=== PATIENT | female | born 1970 | race Caucasian/White ===

== ENCOUNTER 2025-02-07 07:51 | Observation (INO) | payer OTHER ==
[~2025-02-07] VITALS: Ht 160 cm; Wt 72.6 kg
[~2025-02-07 07:51] MED LIST: ADVA45AE INH; K2 P1TAB PO; MAGN200T PO; SYNT25TA PO; THERTAB52 PO; VENTAER INH
[2025-02-07] MEDS ORDERED: ROCURONIUM BROMIDE 50MG/5ML VIAL As Ordered ONE (09:14)
[2025-02-07] MEDS ORDERED: LIDOCAINE 2% 100 MG/5 ML SDV (FOR ANES.) As Ordered ONE (09:14)
[2025-02-07] MEDS ORDERED: dexAMETHasone 4 MG/ML 1 ML VIAL As Ordered ONE (09:14)
[2025-02-07] MEDS ORDERED: dexmedeTOMIDine (4 MCG/ML) 200 MCG/50 ML BTL As Ordered ONE (09:14)
[2025-02-07] MEDS ORDERED: ONDANSETRON 4MG/2ML VIAL As Ordered ONE (09:14)
[2025-02-07] MEDS ORDERED: MIDAZOLAM INJ 2 MG/2 ML VIAL As Ordered ONE (09:15)
[2025-02-07] MEDS: GENTAMICIN SULF 80 MG/2 ML VIAL As Ordered ONE (10:21)
[2025-02-07] MEDS ORDERED: LACRILUBE (AKWA TEARS) OPHTH OINT 3.5 GM As Ordered ONE (11:14)
[2025-02-07] MEDS: ceFAZolin SOD 2 GM IV ONCE IV ONE (11:15)
[2025-02-07] MEDS: HEPARIN SOD 5000 UNITS/ML 1 ML VIAL/SYRINGE SQ ONE (11:17)
[2025-02-07] MEDS ORDERED: ACETAMINOPHEN 1000MG/100ML IV BAG As Ordered ONE (11:58)
[2025-02-07] MEDS ORDERED: SUGAMMADEX SODIUM 200 MG/2 ML VIAL As Ordered ONE (11:58)
[2025-02-07] MEDS ORDERED: HYDROmorphone HCL 2 MG/ML 1 ML VIAL As Ordered ONE (11:58)
[2025-02-07] MEDS ORDERED: HYDROMORPHONE HCL 0.5 MG/0.5 ML SYRINGE IV PRN (14:30)
[2025-02-07] MEDS ORDERED: ONDANSETRON 4MG/2ML VIAL IV PRN ×2 (14:30→18:00)
[2025-02-07 17:03] VITALS: BP 128/69; TEMP 98.5; O2SAT 95
[2025-02-07 17:34] VITALS: BP 121/74; TEMP 98.1; O2SAT 96
[2025-02-07] MEDS: LR 1,000 ML IV SCH (17:42)
[2025-02-07] MEDS ORDERED: ACETAMINOPHEN 325 MG TAB PO PRN (18:00)
[2025-02-07 18:01] VITALS: BP 125/64; TEMP 98.1; O2SAT 96
[2025-02-07] MEDS: ceFAZolin SODIUM 2 GM in DEXTROSE 5% (D5W) ADV/MINI-BAG 50 ML IV SCH (18:05)
[2025-02-07] MEDS: traMADol 50 MG TAB PO PRN (20:14)
[2025-02-07 20:34] VITALS: BP 114/62; TEMP 98.1; O2SAT 95
[2025-02-07 21:39] VITALS: BP 116/59; TEMP 98.7; O2SAT 93
[2025-02-07] MEDS: PERCOCET 5MG/325MG TAB PO PRN (23:26)
[2025-02-08 00:38] VITALS: BP 105/57; TEMP 98.3; O2SAT 92
[2025-02-08 06:29] VITALS: BP 100/56; TEMP 98.1; O2SAT 96
[2025-02-08] MEDS ORDERED: FLUT15.820 NARES (08:41)
[2025-02-08] MEDS ORDERED: ALPR0.25 PO (08:41)
[2025-02-08] MEDS ORDERED: HOME MED LIST COMPLETE! XX SCH (08:45)
[2025-02-08] MEDS ORDERED: PERCOCET PO (09:06)
[2025-02-08 10:32] VITALS: BP 120/64; TEMP 98.8; O2SAT 95
== END 2025-02-08 11:12 | disposition home or self-care (01) ==
LOC: M SDC 07:51 → M RR INP 07:52 → M MS5PR 16:50
PROVIDERS: ADMIT Plastic Surgery Surgery of the Hand; ATTEND Plastic Surgery Surgery of the Hand
DX: N62 Hypertrophy of breast (principal); E03.9 Hypothyroidism, unspecified; Z79.899 Other long term (current) drug therapy; F17.210 Nicotine dependence, cigarettes, uncomplicated
CPT/HCPCS: 19318; 88305; 96374; 96376; J0131; J0665; J0666; J0688; J1100; J1171; J1580; J2250; J2405; J3010